=== PATIENT | female | born 1995 | race Two or more races ===

== ENCOUNTER 2019-02-09 08:40 | Emergency (ER) | payer SELFPAY ==
[~2019-02-09] VITALS: Ht 154.9 cm; Wt 77.6 kg
[2019-02-09 08:57] VITALS: BP 129/68
== END 2019-02-09 10:01 | disposition home or self-care (01) ==
LOC: ER 08:50
DX: S93.401A Sprain of unspecified ligament of right ankle, initial encounter (principal); X58.XXXA Exposure to other specified factors, initial encounter; Y93.39 Activity, other involving climbing, rappelling and jumping off; Y92.89 Other specified places as the place of occurrence of the external cause; Y99.8 Other external cause status
CPT/HCPCS: 73610